=== PATIENT | male | born 1990 | race Caucasian/White ===

== ENCOUNTER 2017-09-27 15:07 | Emergency (ER) | payer OTHER ==
[~2017-09-27] VITALS: Ht 177.8 cm; Wt 73.8 kg
[2017-09-27 15:15] VITALS: TEMP 36.3; Ht 177.8 cm; Wt 73.8 kg
[2017-09-27] MEDS ORDERED: GELATIN SPONGE 12-7MM EXT STA (15:24)
[2017-09-27] MEDS ORDERED: FLUO20CA35 PO (15:46)
--- NOTE | 2017-09-27 15:47 | EMERGENCY ROOM VISIT NOTE ---
ED Visit Note First contact with patient: 15:18 CHIEF COMPLAINT: Left index finger laceration HISTORY OF PRESENT ILLNESS: This 26-year-old male patient presents to the emergency department ambulatory after cutting the left index finger approximately 1 hour prior to arrival. The patient works as a cook. He is states that he was at work and accidentally cut his finger with a sharp knife. The bleeding has not stopped. There is no weakness or numbness of the area. He believes that his tetanus shot is up-to-date. Full range of motion of the finger. The patient rates the pain as stinging and 8/10. REVIEW OF SYSTEMS: A 6 system review of systems was completed with positives and pertinent negatives listed in the HPI. ALLERGIES: No known drug allergies MEDICATIONS: Fluoxetine PMH: No significant past medical history SOCIAL HISTORY: Patient is a smoker. He lives with his significant other. PHYSICAL EXAM: Vital Signs: Reviewed Nurse's notes, vital signs stable. GENERAL : This is a 26-year-old male, in no acute distress, well-developed, well- nourished. SKIN: There is a 1.5 cm long avulsion laceration to the lateral aspect of the left second finger. It is superficial and the top layer of skin has been avulsed. There is no foreign material in the wound and it looks clean. There is active bleeding. No deep structures are seen in the base of the wound. Extension and flexion of the finger is full and strong. Sensation to pain and light touch is intact. EMERGENCY DEPARTMENT COURSE: I examined the patient. Verbal consent was obtained to perform the procedure. The laceration was cleaned with saline and betadine. Gelfoam was applied to the avulsion laceration and the area was dressed with a pressure dressing. The bleeding stopped. The patient tolerated the procedure well. The patient agreed to contact his primary care provider to ensure that his tetanus status is up-to-date. The patient was discharged home in stable condition. Medication reconciliation: I attest that I have personally reviewed the patient 's current medication list. Blood pressure screening: Patient was found to have normal blood pressure on screening and does not require follow-up. DIAGNOSIS: Avulsion laceration of the finger Current/Historical Medications Scheduled Fluoxetine (Prozac), 20 MG PO DAILY Allergies Coded Allergies: No Known Allergies (Unverified , 09/27/17) Vital Signs Date Time Temp Pulse Resp B/P (MAP) Pulse Ox O2 Delivery O2 Flow Rate FiO2 09/27/17 15:51 88 20 124/76 93 09/27/17 15:15 36.3 88 20 124/76 93 Room Air Medications Administered Medications (Trade) Dose Ordered Sig/Gwen Route Start Time Stop Time Status Last Admin Dose Admin Gelatin (Surgifoam Sponge 12-7MM (SMALL)) 1 ea ONE STAT EXT 09/27/17 15:24 09/27/17 15:25 DC 09/27/17 15:39 1 EA Departure Information Dispostion Home / Self-Care Condition GOOD Referrals No Doctor, Assigned (PCP) Patient Instructions My [facility] Additional Instructions You have been treated in the Emergency Department today for your finger laceration. Leave the GELFOAM and dressing in place for the next 48 hours. Keep the dressing clean and dry until time for removal. To remove the GELFOAM dressing, remove the overlying tape and then soak the wound in warm water until the piece of GELFOAM can be easily removed. Proper wound care is essential for adequate wound healing and infection prevention. You can shower and clean the wound with soap and water. Do not scour over the wound, pat dry with a towel. You can use an antibiotic ointment with a dressing/bandage over the wound for the next 3-4 days. After this time you may leave the wound dry and open to the air. Look for signs of infection of the wound including: increased pain, swelling, foul discharge, streaking, or increased temperature. If any of these are noticed you should return to the Emergency Department for further assessment and treatment. As with any laceration you may have received nerve damage to the surrounding tissues. This damage could be permanent. For pain control, you can use the following [id number] medicines (if >12 yo): - Regular strength (325mg/tab) Tylenol (acetaminophen) 2 tabs every 4-6 hours as needed. Do not exceed 12 tablets in a 24 hour period. Avoid taking more than 4 grams (4000 mg) of Tylenol per day. This includes any other sources of acetaminophen you may take on a regular basis. - Regular strength (200 mg/tab) Advil (ibuprofen) 1-2 tabs every 4-6 hours as needed. Do not exceed a dose of 3200 mg per day. Contact your primary care provider to make sure that your tetanus is up to date. Return to the emergency department if your symptoms worsen despite treatment course outlined above.
[2017-09-27 15:51] VITALS: BP 124/76; PULSE 88; O2SAT 93
== END 2017-09-27 15:45 | disposition home or self-care (01) ==
LOC: C.EDB 15:08 → C.EDD 15:45
DX: S61.211A Laceration without foreign body of left index finger without damage to nail, initial encounter (principal); W26.0XXA Contact with knife, initial encounter; Y92.89 Other specified places as the place of occurrence of the external cause; Y99.0 Civilian activity done for income or pay; F17.210 Nicotine dependence, cigarettes, uncomplicated; Z79.899 Other long term (current) drug therapy